=== PATIENT | female | born 1985 | race Two or more races ===

== ENCOUNTER 2024-03-08 19:01 | Inpatient (IN) | payer BC ==
[~2024-03-08] VITALS: Ht 152.4 cm; Wt 68.0 kg
[2024-03-08] MEDS ORDERED: methylPREDNISolone SOD SUCC 125 MG/2 ML VIAL ONE (19:40)
[2024-03-08] MEDS: methylPREDNISolone SOD SUCC 125 MG/2 ML VIAL IV ONE (19:42)
[2024-03-08] MEDS ORDERED: IPRATROPIUM BROMIDE 0.5 MG/2.5 ML NEBU ONE (19:49)
[2024-03-08] MEDS ORDERED: ALBUTEROL SULFATE 2.5 MG/3 ML NEBU ONE (19:49)
[2024-03-08] MEDS: IPRATROPIUM BROMIDE 0.5 MG/2.5 ML NEBU NEB ONE (19:50)
[2024-03-08] MEDS: ALBUTEROL SULFATE 2.5 MG/3 ML NEBU NEB ONE (19:50)
[2024-03-08 19:55] VITALS: O2SAT 91
[2024-03-08 20:04] LABS: BASOPHILS % (AUTO) 0.1 % (0.0-2.0); HEMATOCRIT 40.1 % (31.2-41.9); HEMOGLOBIN 13.6 g/dL (10.9-14.3); LYMPHOCYTES # (AUTO) 0.2 K/uL (0.8-4.8); LYMPHOCYTES % (AUTO) 1.9 % (20.5-51.5); MEAN CORPUSCULAR HEMOGLOBIN 31.2 uug (24.7-32.8); MEAN CORPUSCULAR HGB CONC 34 g/dL (32.3-35.6); MEAN CORPUSCULAR VOLUME 92.4 fL (75.5-95.3); MONOCYTES # (AUTO) 0.3 K/uL (0.1-1.30); NEUTROPHILS # (AUTO) 10.8 K/uL (1.8-8.9); PLATELET COUNT (AUTO) 297 K/uL (179-408); RED BLOOD CELL COUNT(AUTO) 4.34 MIL/uL (3.63-4.92); RED CELL DISTRIBUTION WIDTH 13.6 % (12.3-17.7); WHITE BLOOD COUNT (AUTO) 11.4 K/uL (3.8-11.8)
[2024-03-08 20:08] LABS: DIFFERENTIAL COMMENT 1
[2024-03-08 20:18] VITALS: O2SAT 95
[2024-03-08 20:26] LABS: CREATININE 1.3 mg/dL (0.6-1.3); POTASSIUM 3.2 mmol/L (3.5-5.1)
[2024-03-08 20:55] VITALS: O2SAT 96
[2024-03-08 21:45] LABS: ABG BASE EXCESS -3.8 mmol/L (-2.0-3.0); ABG HCO3 17.9 mmol/L (21.0-28.0); ABG PCO2 24.3 mmHg (32.0-45.0); ABG PH 7.484 (7.350-7.450); ABG PO2 62.9 mmHg (83.0-108.0); ABG TOTAL HEMOGLOBIN 13.7 G/dL (12.0-16.0); COHb 0.2 % (0.5-1.5); MetHb 0.2 % (0.0-1.5); O2Hb 92.8 % (94.0-98.0)
[2024-03-08] MEDS ORDERED: AZITHROMYCIN 250 MG TABLET ONE (21:55)
[2024-03-08] MEDS ORDERED: CEFTRIAXONE /D5W 50ML IVPB **ER PYXIS IV ONE (21:55)
[2024-03-08] MEDS: AZITHROMYCIN 250 MG TABLET PO ONE (21:56)
[2024-03-08] MEDS: CEFTRIAXONE 1 G in IV DEXTROSE 5% 50 ML IV ONE (21:58)
[2024-03-08] MEDS ORDERED: ALBU8HFA4 INH (23:02)
[2024-03-08] MEDS ORDERED: METH4TAB21 (23:02)
[2024-03-09] VITALS (12 sets, daily range): BP systolic 95–102; BP diastolic 55; TEMP 98.2–99; O2SAT 93–100
[2024-03-09] MEDS ORDERED: HYDROCODONE/APAP 5-325MG TABLET PO PRN (01:15)
[2024-03-09] MEDS ORDERED: ONDANSETRON 4 MG/2 ML VIAL IV PRN (01:15)
[2024-03-09] MEDS ORDERED: ACETAMINOPHEN 325 MG TABLET PO PRN (01:15)
[2024-03-09] MEDS: levoFLOXacin 500 MG/D5W 500 MG in PREMIXED 1 EACH IV ONE (02:00)
[2024-03-09] MEDS: levoFLOXacin 500 MG TABLET PO SCH (04:13)
[2024-03-09] MEDS: methylPREDNISolone SOD SUCC 40 MG/ML VIAL IV SCH (06:03)
[2024-03-09] MEDS: PANTOPRAZOLE SODIUM 40 MG TABLET.DR PO SCH (06:04)
[2024-03-09 06:55] LABS: BASOPHILS % (AUTO) 0.1 % (0.0-2.0); HEMATOCRIT 36.1 % (31.2-41.9); HEMOGLOBIN 12.5 g/dL (10.9-14.3); LYMPHOCYTES # (AUTO) 0.5 K/uL (0.8-4.8); LYMPHOCYTES % (AUTO) 4.9 % (20.5-51.5); MEAN CORPUSCULAR HEMOGLOBIN 31.7 uug (24.7-32.8); MEAN CORPUSCULAR HGB CONC 35 g/dL (32.3-35.6); MEAN CORPUSCULAR VOLUME 91.7 fL (75.5-95.3); MONOCYTES # (AUTO) 0.4 K/uL (0.1-1.30); MONOCYTES % (AUTO) 3.8 % (0.0-11.0); NEUTROPHILS # (AUTO) 9.5 K/uL (1.8-8.9); NEUTROPHILS % (AUTO) 91.2 % (38.5-71.5); PLATELET COUNT (AUTO) 270 K/uL (179-408); RED BLOOD CELL COUNT(AUTO) 3.94 MIL/uL (3.63-4.92); RED CELL DISTRIBUTION WIDTH 13.7 % (12.3-17.7); WHITE BLOOD COUNT (AUTO) 10.4 K/uL (3.8-11.8)
[2024-03-09 07:14] LABS: DIFFERENTIAL COMMENT 1
[2024-03-09 07:43] LABS: ALANINE AMINOTRANSFERASE 19 U/L (14-59); ALBUMIN 3.2 g/dL (3.4-5.0); ALKALINE PHOSPHATASE 60 U/L (50-136); ASPARTATE AMINOTRANSFERASE 7 U/L (15-37); BILIRUBIN,TOTAL 0.6 mg/dL (0.2-1.0); CALCIUM 8.9 mg/dL (8.5-10.1); CARBON DIOXIDE 23 mmol/L (21-32); CHLORIDE 104 mmol/L (98-107); CREATININE 0.7 mg/dL (0.6-1.3); GLUCOSE 129 mg/dL (74-106); MAGNESIUM 2.1 mg/dL (1.8-2.4); PHOSPHOROUS 4.3 mg/dL (2.5-4.9); SODIUM SERUM 138 mmol/L (136-145); TOTAL PROTEIN, SERUM 7.1 g/dL (6.4-8.2); UREA NITROGEN, BLOOD 11 mg/dL (7-18)
[2024-03-09 07:47] LABS: THYROID STIMULATING HORMONE 0.517 mIU/mL (0.358-3.740)
[2024-03-09] MEDS: ALBUTEROL SULFATE 2.5 MG/3 ML NEBU NEB PRN (09:51)
[2024-03-09] MEDS ORDERED: BUDE0.5A4 IH (10:35)
[2024-03-09] MEDS: IPRATROPIUM BROMIDE 0.5 MG/2.5 ML NEBU NEB SCH (11:58)
[2024-03-09] MEDS: ALBUTEROL SULFATE 2.5 MG/3 ML NEBU NEB SCH (11:58)
[2024-03-09] MEDS: IV NS 1000 ML 1,000 ML IV PRN (21:30)
[2024-03-10] VITALS (10 sets, daily range): BP systolic 106; BP diastolic 45–59; TEMP 98–98.3; O2SAT 92–100
[2024-03-10] MEDS ORDERED: methylPREDNISolone ACETATE 40 MG VIAL ONE (06:19)
[2024-03-10] MEDS ORDERED: levoFLOXacin 500 MG/D5W 500 MG in PREMIXED 1 EACH IV SCH (09:00)
[2024-03-10] MEDS ORDERED: LEVO500T90 PO (11:08)
[2024-03-10] MEDS ORDERED: METH4TAB21 PO (11:08)
[2024-03-10] MEDS ORDERED: methylPREDNISolone SOD SUCC 40 MG/ML VIAL IV SCH (21:00)
== END 2024-03-10 13:10 | disposition home or self-care (01) | DRG 193 ==
LOC: ER 19:01 → TELE-TD3 22:00 → TELE3 03-09 10:23
PROVIDERS: ADMIT Internal Medicine; ATTEND Nurse Practitioner Acute Care
DX: J12.9 Viral pneumonia, unspecified (principal); J45.901 Unspecified asthma with (acute) exacerbation; J96.01 Acute respiratory failure with hypoxia; E87.3 Alkalosis; J18.9 Pneumonia, unspecified organism; E87.6 Hypokalemia; E78.5 Hyperlipidemia, unspecified; M32.9 Systemic lupus erythematosus, unspecified; I10 Essential (primary) hypertension; R73.03 Prediabetes; Z82.69 Family history of other diseases of the musculoskeletal system and connective tissue
CPT/HCPCS: 36415; 36600; 71045; 83735; 84100; 84443; 84484; 85025; 86140; 94640; 94664; 94760; A4606; A4663; G0378; J0696; J1010; J1956; J2919; J3590; J7040; Q0144